=== PATIENT | male | born 1965 | race Caucasian/White ===

== ENCOUNTER 2022-04-04 11:06 | Outpatient (CLI) | payer BC, SELFPAY ==
--- NOTE | 2022-04-04 11:47 | XR_ITS ---
WS: [id number] Left shoulder, 2 views, 04/04/2022 Clinical Data: PAIN IN LEFT SHOULDER Comparison: None. Findings: No fractures or dislocations are seen. The AC joint is normal. The adjacent left clavicle, left scapu la and ribs are normal. The soft tissues are unremarkable. XR/XR shoulder LT min 2V* [id number] Impression: Negative left shoulder.
--- NOTE | 2022-04-04 11:47 | XR_ITS ---
WS: [id number] Cervical spine, AP, odontoid, lateral and flexion, extension and neutral position, 04/04/2022 Clinical Data: NECK PAIN/CERVICALGIA Comparison: None. Findings: No compression fractures are seen. There is degenerative disc narrowing at C3-C4, C5-C6, C6 -C7 and C7-T1. There is osteoarthritic spurring at these levels. There is no prevertebral soft tissue swelling. The odontoid is unremarkable. On flexion and extension there is no limitation of motion or subluxation. The soft tissues of the neck and the lung apices are normal. XR/XR cervical spine 4-5V [id number] Impression: 1. Degenerative disc narrowing at multiple levels with accompanying osteoarthri tis. 2. On flexion and extension there is no limitation of motion or subluxation.
--- NOTE | 2022-04-04 11:47 | XR_ITS ---
WS: [email or web address] Thoracic spine, 3 views, 04/04/2022 Clinical Data: PAIN IN THORACIC SPINE Comparison: None. Findings: No compression fractures are seen. The disc heights are normal. There is minimal osteoarthritic spurring of the lower thoracic vertebral bodies. The paravertebral re gions are normal. 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
== END 2022-04-04 11:07 | disposition home or self-care (01) ==
PROVIDERS: PCP Family Medicine; Visit Provider Family Medicine
DX: M25.512 Pain in left shoulder (principal); M54.2 Cervicalgia; M47.814 Spondylosis without myelopathy or radiculopathy, thoracic region
CPT/HCPCS: 72050; 72072; 73030

== ENCOUNTER 2022-06-26 16:19 | Outpatient (CLI) | payer BC, MEDICAID, SELFPAY ==
--- NOTE | 2022-06-26 16:33 | MR_ITS ---
WS: [id number] MRI LUMBAR SPINE NONCONTRAST HISTORY: LOW BACK PAIN WITH SCIATIC, LUMBAR SPONDYLOSIS, DJD, DDD COMPARISON: None available. TECHNIQUE: Sagittal and axial multisequence imaging is submitted. Degenerative spondylitic changes in the cervical and thoracic spine. Component of mild cervical steno sis from C3-4 through C6-7. Small central disc protrusion at T8-9 contacts the thoracic cord. Degenerative scoliosis lumbar spine. L3 retrolisthesis by 9.8 mm. L4 retrolisthesis by 3.8 mm. There is a very small amount of marrow edema within the L3 and L4 vertebral bodies which is probably reacti ve. Disc spaces are desiccated and narrowed throughout this lumbar spine, most significant disc disease i s at L2-3 and L4-5. Conus terminates normally at L1. L1-L2: Mild bilateral foraminal narrowing. No high-grade stenosis. Mild bilateral facet arthropathy. L2-L3: Moderate diffuse annular disc bulging with osteophytic ridging and moderate facet joint arthri tis. Moderate central and bilateral foraminal stenosis. Moderate to severe RIGHT subarticular recess encroachment with deformity of the thecal sac and encroachment upon the traversing RIGHT L3 nerve bridget t. L3-L4: Severe annular disc bulging with osteophytic ridging. There is a large extruded disc extending over a length of 16 mm extending into the LEFT subarticular recess. Extruded disc extends caudad fro m the disc level with deformity of the LEFT lateral thecal sac. There is significant contact on the t hecal sac and the traversing LEFT L4 nerve root. Additional severe LEFT foraminal stenosis and modera te RIGHT foraminal stenosis. There is an additional RIGHT foraminal disc protrusion. There is signifi cant mass effect upon the thecal sac and nerve roots at the disc level and just below the disc level. Severe central and bilateral subarticular recess stenosis. L4-L5: Marked annular disc bulging with a LEFT foraminal disc protrusion. Severe facet arthropathy. T here is severe central, bilateral subarticular recess and LEFT foraminal stenosis. Moderate RIGHT for aminal stenosis. Stenosis due to combination of disc, facet and degenerative scoliosis. L5-S1: Moderate annular disc bulging with severe facet arthropathy. Fluid in the facet joints. There is disc encroachment contact on the traversing S1 nerve roots. Moderate central, bilateral subarticul ar recess and foraminal stenosis. Atherosclerosis aorta. No aneurysm. MR/MR lumbar spine wo con* [id number] IMPRESSION: 1. L3 retrolisthesis by 9.8 mm and L4 retrolisthesis by 3.8 mm. 2. Mild degenerative rotoscoliosis. No acute lumbar spine fracture. 3. Severe degenerative disc disease at L2-3 and L4-5. 4. Large extruded disc at L3-4 extends caudad from the disc level into the LEF T subarticular recess. Extruded disc extends over length of 16 mm with signific ant contact and deformity with stenosis of the LEFT subarticular recess and deyvi tral canal. Significant contact on the traversing LEFT L4 nerve root. 5. Severe central, bilateral subarticular recess and LEFT foraminal stenosis a t L3-4. Moderate RIGHT foraminal stenosis at L3-4 with disc protrusion. 6. Severe central, bilateral subarticular recess and LEFT foraminal stenosis a t L4-5, moderate RIGHT foraminal stenosis. 7. Disc contact on the traversing S1 nerve roots. Moderate central, bilateral subarticular recess and foraminal stenosis at L5-S1. 8. Moderate to severe RIGHT subarticular recess encroachment at L2-3. Contact on the traversing RIGHT L3 nerve root. Moderate central and bilateral foraminal stenosis at L2-3.
== END 2022-06-26 16:20 | disposition home or self-care (01) ==
LOC: RAD 16:27
PROVIDERS: PCP Family Medicine; Visit Provider Family Medicine
DX: M51.36 Other intervertebral disc degeneration, lumbar region (principal); M47.816 Spondylosis without myelopathy or radiculopathy, lumbar region; M43.16 Spondylolisthesis, lumbar region; M41.86 Other forms of scoliosis, lumbar region; M51.16 Intervertebral disc disorders with radiculopathy, lumbar region; M48.07 Spinal stenosis, lumbosacral region
CPT/HCPCS: 72148

== ENCOUNTER 2023-02-23 12:24 | Outpatient (CLI) | payer BC, MEDICAID, SELFPAY ==
--- NOTE | 2023-02-23 12:36 | CT_ITS ---
WS: [email or web address] LDCT LUNG CANCER SCREENING TECHNIQUE: Noncontrast CT of the chest with coronal and sagittal reformatted images. CLINICAL INFORMATION: NICOTINE DEPENDENCE,CIGARETTES COMPARISON: None. DLP: 59.50 mGy.cm DIvol: Mean CTDIvol: 1.00 (mGy) All CT scans at [facility] use at least one of these dose optimization techniques: automat ed exposure control; mA and/or kV adjustment per patient size (includes targeted exams where dose is matched to clinical indication); or iterative reconstruction. FINDINGS: No acute pulmonary infiltrates. Few calcified granulomas. No suspicious pulmonary parenchym al abnormalities. Chronic emphysematous changes. Normal caliber of thoracic aorta. Coronary calcification. No mediastinal or hilar lymphadenopathy. Sm all esophageal hernia. No axillary lymphadenopathy. Adrenal glands are normal. Mild thoracic curve. IMPRESSION: CT/CT lung screening [id number] LUNG-RADS: 1-Negative FOLLOW UP: 12 Month: Continue annual screening with LDCT
== END 2023-02-23 12:25 | disposition home or self-care (01) ==
LOC: RAD 12:25
PROVIDERS: PCP Family Medicine; Visit Provider Family Medicine
DX: Z12.2 Encounter for screening for malignant neoplasm of respiratory organs (principal); F17.210 Nicotine dependence, cigarettes, uncomplicated
CPT/HCPCS: 71271